=== PATIENT | male | born 1985 | race Caucasian/White ===

== ENCOUNTER 2022-06-28 06:36 | Outpatient (CLI) | payer OTHER, SELFPAY ==
--- NOTE | ~2022-06-28 | MR_ITS ---
EXAMINATION: MR elbow RT wo con DATE: 06/28/2022 07:41 INDICATION: Biceps muscle tear with right elbow pain TECHNIQUE: Magnetic resonance imaging (MRI) of the right elbow was performed without intravenous cont rast. Sequences included coronal, axial, and sagittal PD-weighted FS FSE and coronal, axial, and sagi ttal PD-weighted FSE. COMPARISON: None FINDINGS: Osseous/other: Normal alignment. Normal marrow signal with no marrow edema, fracture, osteochondral lesion or abnor mal marrow replacing process. Joint spaces appear normal with no appreciable chondromalacia. Tendons: Complete avulsion of the biceps brachii tendon from its radial tubercle insertion. There is a 4.5 cm proximal retraction of the tendon. Mild tendinopathy in the distal 2 cm of the retracted tear margin which is folded back upon itself. There is focal soft tissue edema surrounding the retracted portion of the tendon and along the tear defect without a loculated hematoma. Triceps and brachialis tendons are normal. Common flexor tendon wad is normal. The common extensor tendon wad is normal. Ligaments: The medial and lateral collateral ligament complexes are normal. Cubital tunnel: Cubital tunnel is unremarkable with normal signal and caliber of the ulnar nerve. Fluid: Physiologic amount of fluid the elbow joint. IMPRESSION: 1. Mild tendinopathy with complete avulsion and 4.5 cm proximal retraction of the biceps brachii tend on. Reviewed, dictated and finalized at location A. IMPRESSION: 1. Mild tendinopathy with complete avulsion and 4.5 cm proximal retraction of t he biceps brachii tendon.
== END 2022-06-28 06:37 | disposition home or self-care (01) ==
LOC: ANHIMG 06:45
DX: S46.211A Strain of muscle, fascia and tendon of other parts of biceps, right arm, initial encounter (principal); X58.XXXA Exposure to other specified factors, initial encounter
CPT/HCPCS: 73221